=== PATIENT | male | born 1965 | race Caucasian/White ===

== ENCOUNTER 2020-09-29 14:57 | Outpatient (CLI) | payer BC, SELFPAY | END 2020-09-29 14:58 | disposition home or self-care (01) | LOC: ANHCOVIDVC 14:58 | DX: Z23 Encounter for immunization (principal) | CPT/HCPCS: 0001A; 91300 ==

== ENCOUNTER 2020-10-20 14:52 | Outpatient (CLI) | payer BC, SELFPAY | END 2020-10-20 14:53 | disposition home or self-care (01) | LOC: ANHCOVIDVC 14:52 | DX: Z23 Encounter for immunization (principal) | CPT/HCPCS: 0002A; 91300 ==